=== PATIENT | female | born 2000 | race Caucasian/White ===

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

== ENCOUNTER → 2019-09-18 16:16 | Outpatient (CLI) | payer MEDICAID, SELFPAY ==
[2019-09-21 00:22] LABS: Neisseria gonorrhoeae, NAA Negative (Negative)
== END ==
PROVIDERS: Visit Provider Nurse Practitioner Obstetrics & Gynecology
DX: Z34.90 Encounter for supervision of normal pregnancy, unspecified, unspecified trimester (principal)
CPT/HCPCS: 87491; 87591

== ENCOUNTER → 2019-09-30 13:12 | Outpatient (CLI) | payer MEDICAID, SELFPAY ==
--- NOTE | 2019-09-30 13:13 | US_ITS ---
PROCEDURE: US OB TRANSVAGINAL CLINICAL INDICATION: for dates COMPARISON: TVP US TRANSVAGINAL PREG from 12/20/2016 FINDINGS: An intrauterine gestational sac is present with a pole with a crown-rump length of 2.34cm correlating to gestational age of 9weeks 1day. heart tones are present with an FHR of 178bpm. Yolk sac is noted. The uterus is retroverted. Along the anterior left lateral aspect of the gestational sac there is a fluid collection measuring 2.3 x 1.8 cm consistent with an area of subchorionic hemorrhage. Consider follow-up to confirm stability IMPRESSION: Live IUP at 9 weeks 1 day. heart tones are present. There is suspected area of subchorionic hemorrhage along the anterior and left lateral aspect of the gestational sac. Consider follow-up to confirm stability the Estimated due date by Ultrasound is 05/03/2020 Dictated by: Javon Roper MD 09/30/2019 15:37 Electronically signed by Javon Roper MD in [place] 09/30/2019 15:37
== END ==
PROVIDERS: PCP Nurse Practitioner Obstetrics & Gynecology; Visit Provider Nurse Practitioner Obstetrics & Gynecology
DX: Z34.90 Encounter for supervision of normal pregnancy, unspecified, unspecified trimester (principal)
CPT/HCPCS: 76802; 76817

== ENCOUNTER → 2019-12-13 12:40 | Outpatient (CLI) | payer MEDICAID, SELFPAY ==
--- NOTE | 2019-12-13 12:41 | US_ITS ---
PROCEDURE: US OB /MATERNAL DETAIL CLINICAL INDICATION: 20 weeks gestation COMPARISON: US OB TRANSVAGINAL from 09/30/2019 FINDINGS: There is a single live fetus which is in cephalic presentation. heart and body motion noted. The placenta is anterior. Average appearing amount of amniotic fluid. Cervix is closed and measures 4 cm transabdominal Complete survey performed and was unremarkable on the submitted images as in PACS. No discrete anomalies identified on survey imaging by technologist. Active fetus. Three-vessel cord with satisfactory umbilical cord insertion. 4- chamber heart noted. Survey of brain & ventricles Unremarkable. Face and neck survey unremarkable. Diaphragm and chest views unremarkable. Abdomen: Both kidneys noted and unremarkable. Stomach noted and satisfactory. Spine: Survey of the spine satisfactory with no anomalies identified nor imaged. Both arms and legs noted. Amniotic Fluid: Adequate. Maternal adnexa: No significant findings. Measurements: Average ultrasound age 19weeks 6days. Gestational Age 19weeks 5days Estimated due date by ultrasound age 1105/02/2020. Estimated weight 311g BPD = 19weeks 6days OFD = 20weeks 3days HC = 19weeks 3days AC = 19weeks 6days FL = 19weeks 6days Growth Percentile= 47Percent% Heart Rate = 149bpm Cerebellum = 20weeks 1day Humerus = 20weeks 1day HC/AC is 1.16 CI is 0.77 FL/BPD is 0.69 FL/AC is 0.22 IMPRESSION: Live IUP at 19 weeks 6 days as described above. All parameters correlate with no obvious anomalies. Please see above for detail Dictated by: Javon Roper MD 12/16/2019 10:54 Electronically signed by Javon Roper MD in [place] 12/16/2019 10:54
== END ==
PROVIDERS: PCP Nurse Practitioner Obstetrics & Gynecology; Visit Provider Nurse Practitioner Obstetrics & Gynecology
DX: Z34.90 Encounter for supervision of normal pregnancy, unspecified, unspecified trimester (principal); Z3A.20 20 weeks gestation of pregnancy
CPT/HCPCS: 76811

== ENCOUNTER → 2020-01-08 14:35 | Outpatient (CLI) | payer MEDICAID, SELFPAY ==
[2020-01-08 15:09] LABS: Basophils % 0.4 % (0.1-2.0); Eosinophils # 0.1 K/mm3 (0.0-0.4); Hemoglobin 11.5 g/dL (12.2-16.2); Lymphocytes # 1.9 K/mm3 (0.7-4.5); Lymphocytes % 21.2 % (10-50); Mean Corpuscular HGB Conc 34.9 g/dL (31.8-35.4); Mean Corpuscular Hemoglobin 33.2 pg (27.0-31.2); Mean Corpuscular Volume 95.1 fl (81-99); Mean Platelet Volume 8.6 fl (7.4-10.4); Monocytes # 0.2 K/mm3 (0.1-1.0); Monocytes % 2.7 % (1.7-9.3); Neutrophils # 6.8 K/mm3 (1.8-7.8); Neutrophils % 74.8 % (37.0-80.0); Platelet Count 179 K/mm3 (142-424); Red Blood Count 3.47 M/mm3 (4.20-5.40); Red Cell Distribution Width 13.3 % (11.5-17.5)
[2020-01-10 08:48] LABS: HIV Screen 4th Generation wRfx Non Reactive (Non Reactive)
[2020-01-10 18:00] LABS: Hepatitis B Surface Antigen Negative (Negative); Hepatitis C Antibody <0.1 s/co ratio (0.0-0.9); Rapid Plasma Reagin Ab Titer Non Reactive (NonRea<1:1); Rubella Antibodies, IgG <0.90 index (Immune >0.99)
== END ==
PROVIDERS: PCP Nurse Practitioner Obstetrics & Gynecology; Visit Provider Nurse Practitioner Obstetrics & Gynecology
DX: Z34.90 Encounter for supervision of normal pregnancy, unspecified, unspecified trimester (principal)
CPT/HCPCS: 36415; 85025; 86592; 86703; 86762; 86850; 87340; 87380; G0432

== ENCOUNTER → 2020-02-24 13:21 | Outpatient (CLI) | payer MEDICAID, SELFPAY ==
[2020-02-24 15:29] LABS: Glucose 1 Hour 134 mg/dL (74-100)
[2020-02-24 15:40] LABS: Glucose,Fasting 88 mg/dl (74-100)
== END ==
PROVIDERS: Visit Provider Nurse Practitioner Obstetrics & Gynecology
DX: Z34.90 Encounter for supervision of normal pregnancy, unspecified, unspecified trimester (principal)
CPT/HCPCS: 36415; 82951

== ENCOUNTER 2020-03-11 18:33 | Outpatient (CLI) | payer MEDICAID, SELFPAY ==
[2020-03-11 18:47] VITALS: BMI 22.2
[2020-03-11 18:51] LABS: Microscopic, Urine URINE MICROSCOPIC (MICROSCOPIC)
[2020-03-11 18:53] LABS: Appearance,Urine CLEAR (Clear); Bilirubin,Urine Negative (Negative); Blood, Urine Negative (Negative); Color,Urine YELLOW (Yellow); Glucose,Urine (UA) Negative (Negative); Ketones,Urine Negative (Negative); Leukocyte Esterase,Urine 1+ (Negative); Nitrate,Urine Negative (Negative); Protein,Urine Negative (Negative)
[2020-03-11 19:03] LABS: Bacteria,Urine 2+ /lpf
[2020-03-11 19:05] LABS: Amphetamine/Metha Screen,Urine Negative ng/ml (<1000); Benzodiazepines Screen,Urine Negative ng/ml (<200)
[2020-03-11 19:06] LABS: Barbiturates Screen,Urine Negative ng/ml (<200); Cannabinoid Screen,Urine Negative ng/ml (<50)
[2020-03-11 19:07] LABS: Cocaine Screen,Urine Negative ng/ml (<300)
[2020-03-11 19:08] LABS: Methadone Screen,Urine Negative ng/ml (<300); Opiate Screen,Urine Negative ng/ml (<300)
[2020-03-11 19:09] LABS: Phencyclidine Screen,Urine Negative ng/ml (<25)
[2020-03-11 19:15] VITALS: BP 116/72; PULSE 93; RESP 18; TEMP 37.6; O2SAT 98; BMI 22.2
== END 2020-03-11 20:51 | disposition home or self-care (01) ==
LOC: OBOUT 18:36 → OB 18:37
PROVIDERS: PCP Nurse Practitioner Obstetrics & Gynecology; Visit Provider Nurse Practitioner Obstetrics & Gynecology
DX: O47.03 False labor before 37 completed weeks of gestation, third trimester (principal); Z3A.32 32 weeks gestation of pregnancy
CPT/HCPCS: 59025; 80305; 81001; 87086; 96365; 96372; G0463

== ENCOUNTER 2020-03-12 18:06 | Outpatient (CLI) | payer MEDICAID, SELFPAY ==
[2020-03-12 18:22] VITALS: RESP 20; TEMP 36.7; O2SAT 100; BMI 24.4
== END 2020-03-12 18:42 | disposition home or self-care (01) ==
LOC: OBOUT 18:08 → OB 18:10
PROVIDERS: Visit Provider Nurse Practitioner Obstetrics & Gynecology
DX: O47.03 False labor before 37 completed weeks of gestation, third trimester (principal); Z3A.32 32 weeks gestation of pregnancy
CPT/HCPCS: 96372

== ENCOUNTER → 2020-04-10 16:35 | Outpatient (CLI) | payer MEDICAID, SELFPAY | PROVIDERS: Visit Provider Nurse Practitioner Obstetrics & Gynecology | DX: Z34.90 Encounter for supervision of normal pregnancy, unspecified, unspecified trimester (principal) | CPT/HCPCS: 86403 ==

== ENCOUNTER → 2020-04-14 10:28 | Outpatient (CLI) | payer MEDICAID, SELFPAY ==
--- NOTE | 2020-04-14 10:29 | US_ITS ---
PROCEDURE: US OB FOLLOW UP CLINICAL INDICATION: sga Small for gestational age COMPARISON: US US OB /MATERNAL DETAIL from 12/13/2019 FINDINGS: There is a single live fetus present in cephalic presentation. heart and body motion noted. The placenta is anterior and fundal in implantation. The cervix is closed and measures 3 cm. Average ultrasound age is 37 weeks 0 days. Estimated weight a 3059 g which is 47 percentile. BPD 37 weeks 1 day, OFD 37 weeks 5 days, HC 36 weeks 3 days, AC 37 weeks 0 days, FL 37 weeks 0 days. Heart rate is 158 beats per minute. Estimated due date by ultrasound is 05/05/2020. Biophysical profile is 8 of 8 and amniotic fluid index is 10 cm. IMPRESSION: Live IUP at 37 weeks 0 days as described above. No evidence of intrauterine growth restriction. Please see above for detail. Biophysical profile 8 of 8. Amniotic fluid index 10 cm. Dictated by: Javon Roper MD 04/15/2020 11:28 Javon Roper MD in [place] 04/15/2020 11:28
== END ==
PROVIDERS: Visit Provider Nurse Practitioner Obstetrics & Gynecology
DX: O36.5990 Maternal care for other known or suspected poor fetal growth, unspecified trimester, not applicable or unspecified (principal)
CPT/HCPCS: 76816; 76819

== ENCOUNTER 2020-04-17 02:54 | Inpatient (IN) | payer MEDICAID, SELFPAY ==
[2020-04-16 23:21] VITALS: BMI 25.3
[2020-04-16 23:26] LABS: Microscopic, Urine URINE MICROSCOPIC (MICROSCOPIC)
[2020-04-16 23:28] VITALS: BP 116/77; PULSE 113; RESP 19; TEMP 36.8; O2SAT 98; BMI 25.7
[2020-04-16 23:28] LABS: Appearance,Urine CLEAR (Clear); Bilirubin,Urine Negative (Negative); Blood, Urine Negative (Negative); Color,Urine YELLOW (Yellow); Glucose,Urine (UA) Negative (Negative); Ketones,Urine Negative (Negative); Leukocyte Esterase,Urine Negative (Negative); Nitrate,Urine Negative (Negative); Protein,Urine Negative (Negative)
[2020-04-16 23:41] LABS: Barbiturates Screen,Urine Negative ng/ml (<200); Benzodiazepines Screen,Urine Negative ng/ml (<200)
[2020-04-16 23:42] LABS: Amphetamine/Metha Screen,Urine Negative ng/ml (<1000); Cannabinoid Screen,Urine Negative ng/ml (<50)
[2020-04-16 23:43] LABS: Cocaine Screen,Urine Negative ng/ml (<300)
[2020-04-16 23:44] LABS: Methadone Screen,Urine Negative ng/ml (<300); Opiate Screen,Urine Negative ng/ml (<300)
[2020-04-16 23:45] LABS: Phencyclidine Screen,Urine Negative ng/ml (<25)
[2020-04-16 23:48] LABS: Bacteria,Urine Trace /lpf; WBC,Urine Occasional #/hpf (0-3)
[2020-04-16 23:59] LABS: Fetal Membrane Rupture (Rapid) Negative (Negative)
[2020-04-17 03:23] LABS: Basophils % 0.4 % (0.1-2.0); Eosinophils # 0.1 K/mm3 (0.0-0.4); Eosinophils % 1.1 % (0.1-12.0); Hematocrit 29.9 % (37.0-47.0); Lymphocytes # 2.7 K/mm3 (0.7-4.5); Lymphocytes % 28.4 % (10-50); Mean Corpuscular HGB Conc 33.3 g/dL (31.8-35.4); Mean Corpuscular Hemoglobin 30.6 pg (27.0-31.2); Mean Platelet Volume 9.7 fl (7.4-10.4); Monocytes # 0.4 K/mm3 (0.1-1.0); Monocytes % 4.6 % (1.7-9.3); Neutrophils # 6.2 K/mm3 (1.8-7.8); Neutrophils % 65.6 % (37.0-80.0); Platelet Count 160 K/mm3 (142-424); Red Blood Count 3.25 M/mm3 (4.20-5.40); Red Cell Distribution Width 13.8 % (11.5-17.5); White Blood Count 9.4 K/mm3 (4.8-10.8)
[2020-04-17 04:53] LABS: Coronavirus 19 IgG Antibody Negative (Negative); Coronavirus 19 IgM Antibody Negative (Negative)
--- NOTE | 2020-04-17 08:40 | HMH.OBAPHP ---
OB - H&P: HPI Antepartum - History of Present Illness Chief complaint: Contractions History of present illness: She is a 19-year-old 2 para 1 at 37 and 5 weeks gestational age. She was admitted overnight with contractions. She subsequently changed her cervix from 3 to 4 cm. She is now 4 to 5 cm. She is having just occasional contractions but she complains of severe back pain. As result of this we will admit her for labor and delivery. [place]. - History of Present Criteria for establishing EDC:: LMP confirmed by 1st trimester US care: good care Ultrasounds: normal 1st trimester US, normal mid trimester US Obstetrical complications: none Medical complications: none [facility] History I have reviewed the patient's past medical history: Yes Medical History: Denies:: Anxiety, Depression *Have you ever received a pneumonia vaccine?: No *Have you received a flu vaccine this season?: No Other Surgeries: Yes: No Previous Surgery. No: Amputation: No Fractures: No - *Social History Smoking Status: Never smoker Alcohol Intake: never Alcohol Intake Frequency:: other Substance Use Type: denies use *Occupational Status:: unemployed *Travel in the last 8 weeks: None - Psychiatric History Pschychiatric History:: Denies:: Anxiety, Depression Family Hx:: No significant family history Para: 1 Review of Systems - Review of Systems Review of systems:: pertinent systems reviewed and negative unless documented below Meds Home Medications Medication Instructions Recorded Confirmed Type prenat.vits,courtney,qam-kkfn-bqfhd 1 tab PO DAILY 06/07/17 04/17/20 History promethazine 25 mg tablet 25 mg PO Q4-6H PRN #15 tab 09/20/19 04/17/20 Rx Ferrous Sulfate 325 mg PO DAILY 04/17/20 04/17/20 History Allergies Allergy/AdvReac Type Severity Reaction Status Date / Time No Known Allergies Allergy Verified 04/17/20 03:36 OB - H&P: Exam - Physical Exam Vital signs: Temp Pulse Resp BP Pulse Ox 98.3 F 113 H 19 116/77 98 04/16/20 23:28 04/16/20 23:28 04/16/20 23:28 04/16/20 23:28 04/16/20 23:28 - Constitutional no acute distress - Routine HEENT Exam Head: Present: normocephalic Eye: Present: EOMI, PERRL ENT: Present: mucous membranes moist - Routine Neck Exam Present: supple, full ROM - Routine Respiratory Exam Absent: accessory muscle use (good air entry bilaterally), respiratory distress, wheezes, crackles - Routine Cardiovascular Exam Present: RRR. Absent: murmur - Routine Abdominal Exam Present: soft, normoactive bowel sounds. Absent: tenderness, distended, guarding - Routine Rectal Exam Patient deferred: visual exam, digital exam - Routine Exam Patient deferred: external exam, groin exam, perineal exam - Routine Extremities Exam Present: full ROM. Absent: cyanosis, edema - Routine Skin Exam Present: intact. Absent: cyanosis - Routine Neurological Exam Present: alert, oriented X3 - Routine Psychiatric Exam Present: normal affect OB - Results - Labs Labs: Short CBC 04/17/20 Range/Units 03:05 WBC 9.4 (4.8-10.8) K/mm3 Hgb 10.0 L (12.2-16.2) g/dL Hct 29.9 L (37.0-47.0) % Plt Count 160 (142-424) K/mm3 Urine 04/16/20 Range/Units 23:10 Urine Color Yellow (Yellow) Urine Appearance Clear (Clear) Urine pH 7.0 (5.0-8.5) Ur Specific [place] 1.020 (1.005-1.030) Urine Protein Negative (Negative) Urine Glucose (UA) Negative (Negative) OB - A/P Antepartum (1) Normal delivery at term Status: Acute - Additional Plan Planning to breastfeed?: No Plan: expectant management Additional Information:: She is now 37 weeks and 5 days. She is having irregular contractions. She has changed her cervix overnight. She lives about 20 miles at a time. We will go ahead and deliver her.
--- NOTE | 2020-04-17 08:42 | HMH.LABNOT ---
Labor Note - Subjective: Date: 04/17/20 Time: 08:42 irregular contractions - Objective: NST:: Reactive Contractions:: every 4-5 minutes Cervical Dilation:: 4-5 Effacement:: 75% Station: -2 Membranes: intact - Fetus: Monitoring?: Yes monitoring type:: External - Assessment: Labor progressing?: Yes Cephalopelvic disproportion?: No Patient Problems: All Active Problems (This Medical Record has been edited. Action required.) Normal delivery at term (Acute) (Acute) - Plan: Anesthesia for epidural?: No Continue to labor down?: Yes Plan for ?: No Continue to monitor?: Yes Start pushing?: No
--- NOTE | 2020-04-17 09:25 | HMH.LABNOT ---
Labor Note - Subjective: Date: 04/17/20 Time: 09:25 irregular contractions - Objective: NST:: Reactive Contractions:: every 4-5 minutes Cervical Dilation:: 4-5 Effacement:: 80% Station: -1 Membranes: artificially ruptured - Fetus: Monitoring?: Yes monitoring type:: Internal and External Comment:: I inserted an IUPC - Assessment: Labor progressing?: Yes Cephalopelvic disproportion?: No Patient Problems: All Active Problems (This Medical Record has been edited. Action required.) Normal delivery at term (Acute) (Acute) - Plan: Anesthesia for epidural?: Yes Continue to labor down?: Yes Plan for ?: No Continue to monitor?: Yes Start pushing?: No
--- NOTE | 2020-04-17 11:10 | P.PN_ITS ---
[facility] Anesthesia Checklist - Patient Identification Patient Identification: Arm Band, Verbal (Name & ) - Structural Data Admitted From: Home Planned Operative Procedure/s: Labor epidural Consent for Planned Operative Procedure(s) Verified: Yes Verified Documents: Surgical Consent, History and Physical - Chart Verification Results Verified: CBC - Additional verifications Patient : Yes Anesthesia Reactions: No - Airway Assessment C-Spine Mobility Assessed: Yes TMJ Mobility Assessed: Yes Dentition: Good Dentition - Neurological Assessment Level of Consciousness: Awake, Alert, Appropriate, Follows Commands Hx Seizures: No Numbness or tingling in extremities: No - Anesthesia Plan Anesthesia Risk discussed: Yes Anesthesia Plan: Verified ASA Class: II Anesthesia Type: Epidural [facility] History I have reviewed the patient's past medical history: Yes Medical History: Reports:: Gastroesophageal Reflux Disease(GERD) Denies:: Anxiety, Depression *Have you ever received a pneumonia vaccine?: No *Have you received a flu vaccine this season?: No Anesthesia experience/problems:: None Other Surgeries: Yes: No Previous Surgery. No: Amputation: No Fractures: No - *Social History Smoking Status: Never smoker Alcohol Intake: never Alcohol Intake Frequency:: other Substance Use Type: denies use *Occupational Status:: unemployed *Travel in the last 8 weeks: None - Psychiatric History Pschychiatric History:: Denies:: Anxiety, Depression Family Hx:: No significant family history Para: 1
--- NOTE | 2020-04-17 12:14 | HMH.LABNOT ---
Labor Note - Subjective: Date: 04/17/20 Time: 12:14 regular contraction - Objective: NST:: Reactive Contractions:: every 2-3 minutes Cervical Dilation:: 6-7 Effacement:: 90% Station: 0 Membranes: artificially ruptured - Fetus: Monitoring?: Yes monitoring type:: Internal and External - Assessment: Labor progressing?: Yes Cephalopelvic disproportion?: No Patient Problems: All Active Problems (This Medical Record has been edited. Action required.) Normal delivery at term (Acute) (Acute) - Plan: Anesthesia for epidural?: Yes Continue to labor down?: Yes Plan for ?: No Continue to monitor?: Yes Start pushing?: No
--- NOTE | 2020-04-17 13:47 | HMH.DN ---
- Delivery Note Delivery Date:: 04/17/20 Delivery Time:: 13:40 Anesthesia Type: Epidural Was labor medically induced?: No Induction method: none Gestational age (weeks): 37 Infant delivered prior to 39 weeks?: Yes Justification for early elective delivery:: Active Labor Infant Gender: Female at 1 minute: 9 at 5 minutes: 9 Delivery Procedure:: She is a 19-year-old 2 para 1 at 37 and 5 weeks gestational age. She came in active labor and change her cervix from 3-4 to almost 5 cm overnight. As result of that we elected to augment her labor. She was started on IV oxytocin had her membranes ruptured. Under labor epidural she progressed to full dilation and delivered spontaneously a liveborn female child at 1:40 PM in the afternoon of April 17, 2020. On deliver the head the anterior shoulder then easily delivered followed by the rest the 's body atraumatically. The oropharynx and nasopharynx were bulb suction. The baby was stimulated and cried spontaneously. She was quite vigorous. We allowed the cord to continue to pulsate for approximately 1 minute. The cord was then doubly clamped and cut and the infant was placed on the mother's abdomen for further care. We then obtained cord blood as well as cord pH. She received IV oxytocin and using gentle traction on the cord and countertraction on the fundus I was able to easily deliver the placenta intact. He had a normal three-vessel cord. There were no perineal or vaginal lacerations. She has a Rh+ blood, she is rubella immune and was group B streptococcus negative. Her estimated blood loss was less than 150 cc. Placental Delivery Description: Spontaneous
[2020-04-17 13:50] LABS: Cord Blood PH 7.45 (7.35-7.45)
[2020-04-17 20:00] VITALS: BP 110/59; PULSE 78; RESP 20; TEMP 36.8; O2SAT 99
[2020-04-18] VITALS: BP 101/50; PULSE 64; RESP 16; TEMP 36.7; O2SAT 98
[2020-04-18 03:52] VITALS: BP 90/53; PULSE 57; RESP 16; TEMP 36.5; O2SAT 99
[2020-04-18 07:18] LABS: Hematocrit 28.6 % (37.0-47.0); Hemoglobin 9.4 g/dL (12.2-16.2)
[2020-04-18 08:25] VITALS: BP 107/65; PULSE 62; RESP 18; TEMP 36.7; O2SAT 99
--- NOTE | 2020-04-18 11:22 | HMH.ACPN2 ---
Internal Medicine - PN: Subj *Date: 04/18/20 *Time: 11:22 Interval history: She continues to do very well this morning. She is eating and drinking and ambulating. She is 1 day post vaginal delivery. She denies any pain. She denies any excess vaginal bleeding. She is bottlefeeding and breast-feeding. Exam Vital signs and Labs for Last 24 Hours: Temp Pulse Resp BP Pulse Ox 98.1 F 62 18 107/65 L 99 04/18/20 08:25 04/18/20 08:25 04/18/20 08:25 04/18/20 08:25 04/18/20 08:25 Laboratory Results - last 24 hr 04/17/20 13:35: Cord ABG pH 7.45 04/18/20 06:22: Hgb 9.4 L, Hct 28.6 L I & O for Last 24 hours: Intake & Output 04/15/20 04/16/20 04/17/20 04/18/20 11:59 11:59 11:59 11:59 Weight 119 lb - Constitutional no acute distress - *Routine HEENT Exam Head: Present: normocephalic Eye: Present: EOMI, PERRL ENT: Present: mucous membranes moist Assessment and Plan (1) Normal delivery at term Status: Acute Category: Medical Code(s): O80 - Encounter for full-term uncomplicated delivery - Assessment and plan all Dx Assessment and Plan for all problems:: She is doing very well. We will plan to send her home tomorrow.
[2020-04-18 11:34] VITALS: BP 107/73; PULSE 66; RESP 16; TEMP 36.8; O2SAT 99
[2020-04-18 16:15] VITALS: BP 102/72; PULSE 63; RESP 18; TEMP 36.7; O2SAT 99
[2020-04-18 20:10] VITALS: BP 113/55; PULSE 65; RESP 16; TEMP 36.8; O2SAT 100
[2020-04-19 03:50] VITALS: BP 98/58; PULSE 56; RESP 16; TEMP 36.6; O2SAT 98
[2020-04-19 08:30] VITALS: BP 118/64; PULSE 60; RESP 18; TEMP 36.9; O2SAT 100
--- NOTE | 2020-04-19 08:48 | HMH.OBDCSM ---
General - General Admission date:: 04/17/20 Discharge date: 04/19/20 HPI - History of Present Illness History of present illness: She is a 19-year-old 2 para 1 who was 37 and 3 weeks gestational age. She came in in active labor. Hospital Course Hospital Course: She had change her cervix from 3 to 5 cm and as result of that we elected to deliver her. She had her membranes ruptured under labor epidural progressed to full dilation. She delivered a liveborn female child at 1:40 PM in the afternoon of April 17, 2020. The baby weighed 6 pounds 3 ounces and was 18 inches long. She had Apgars of 9 at 1 minute and 9 at 5 minutes. She has done well and has remained afebrile throughout her hospitalization. She is eating and drinking and ambulating. She is breast-feeding and bottlefeeding. She has a Rh+ blood, she is rubella nonimmune and was group B streptococcus negative. Her accounting consultant is Dr. Noel. She is discharged home to follow-up with me in approximately 2 weeks time. She has had Depo-Provera prior to discharge. She was given the usual instructions with respect to limiting her activity, driving and sexual activity. Her condition on discharge is stable and improved. Rhogam Administration: Not Indicated Objective Vital signs: Temp Pulse Resp BP Pulse Ox 97.9 F 56 L 16 98/58 L 98 04/19/20 03:50 04/19/20 03:50 04/19/20 03:50 04/19/20 03:50 04/19/20 03:50 DS: Diagnosis - Discharge Diagnosis (1) Normal delivery at term Status: Acute Discharge Plan - Patient Discharge Instructions - Follow up Plan Home Medications: Home Medications Medication Instructions Recorded Confirmed Type prenat.vits,courtney,[id number] 1 tab PO DAILY 06/07/17 04/17/20 History promethazine 25 mg tablet 25 mg PO Q4-6H PRN #15 tab 09/20/19 04/17/20 Rx Ferrous Sulfate 325 mg PO DAILY 04/17/20 04/17/20 History Prescriptions/Medication Reconciliation: No Action promethazine 25 mg tablet 25 mg PO Q4-6H PRN #15 tab PRN Reason: nausea and vomiting prenat.vits,courtney,[id number] 1 tab PO DAILY Ferrous Sulfate 325 mg PO DAILY - Problem Reconciliation Problems Reviewed?: Yes
== END 2020-04-19 09:50 | disposition home or self-care (01) | DRG 807 ==
LOC: OBOUT 02:55 → OB 11:24
PROVIDERS: Admitting Provider Obstetrics & Gynecology; Visit Provider Nurse Practitioner Obstetrics & Gynecology
DX: O80 Encounter for full-term uncomplicated delivery (principal); Z37.0 Single live birth; Z3A.37 37 weeks gestation of pregnancy
CPT/HCPCS: 59409; 36415; 59025; 76816; 76819; 80305; 81001; 82800; 84112; 85014; 85018; 85025; 86328; 86850; 96360; C1758; J0595; J1050

== ENCOUNTER 2024-06-29 14:35 | Emergency (ER) | payer MEDICAID, SELFPAY ==
[2024-06-29 14:45] VITALS: BP 114/84; PULSE 100; RESP 16; TEMP 36.7; O2SAT 98; BMI 19.6
[2024-06-29 14:56] LABS: Apearance,Urine Cloudy (Clear); Bilirubin,Urine Negative (Negative); Blood, Urine 3+ (Negative); Color,Urine Dark Yellow (Yellow); Glucose,Urine (UA) Negative (Negative); Ketones,Urine 15 (Negative); PH,Urine 5.5 (5.0-8.5); Protein,Urine 2+ (Negative); UTC Leukocyte Esterase,Urine 2+ (Negative); UTC Nitrate,Urine Positive (Negative); Urobilinogen,Urine 0.2 EU/dl (0.2)
--- NOTE | 2024-06-29 15:49 | EXP.UTC ---
Discharge Plan Disposition Patient Disposition: Home, Self-Care Condition: Good Prescriptions Prescriptions: New nitrofurantoin monohyd/m-cryst [Macrobid] 100 mg capsule 100 mg PO Q12H 7 Days Qty: 14 0RF Rx Instructions: must administer with a meal/food phenazopyridine [Pyridium] 100 mg tablet 100 mg PO TID PRN (Reason: pain) Qty: 6 0RF Referrals Follow up/Referrals: Adrian Deutsch [Primary Care Provider] - See instructions Activity Restrictions/Add. Instructions Additional Instructions/Restrictions: Take medication as prescribed. Increase fluids. Do not hold urine. Void immediately after intercourse. Wipe from front to back. If symptoms persist or worsen, return to clinic/PCP. Clinical Impressions Clinical Impression: UTI (urinary tract infection) Qualifiers: Urinary tract infection type: acute cystitis Hematuria presence: with hematuria Qualified Code(s): N30.01 - Acute cystitis with hematuria Instructions Patient Instructions: DI for Urinary Tract Infection (UTI) Print Language Print Language: Georgian Discharge ED Provider: Oumou Montgomery [facility] General Stated complaint: lower back pain, no accident Mode of Arrival: Ambulatory Source of Information: Patient Limitations: No Limitations Time Seen by Provider: 06/29/24 15:49 Description of Symptoms (Recalled from Triage Doc. by RN): PATIENT C/O RIGHT SIDE AND LOWER BACK PAIN THAT STARTED 3 DAYS AGO HEENT Symptoms (Recalled from RN notes): No Resp Symptoms (Recalled from RN notes): No Skin Symptoms (Recalled from RN notes): No MS Symptoms (Recalled from RN notes): No Functional Status (Recalled from RN notes): WNL Related Data Previous Rx's ?Medication ?Instructions ?Recorded nitrofurantoin 100 mg PO Q12H 7 days #14 caps 06/29/24 monohydrate/macrocrystals 100 mg capsule (Macrobid) phenazopyridine 100 mg tablet 100 mg PO TID PRN pain 6 doses #6 06/29/24 (Pyridium) tabs Allergies Allergy/AdvReac Type Severity Reaction Status Date / Time promethazine (From Phenergan) Allergy Unknown Verified 06/29/24 14:55 allergy reaction Worker's Comp Is this a Worker's Comp case?: No [facility] Disclaimer: The information contained in this section may have been updated after the patient was seen, as this information can be updated by other users. Social History (System 08/04/17 @ 11:43 by Inocencia Marquez) Smoking Status: Never smoker alcohol intake: never substance use type: denies use current occupational status: unemployed Travel in the last 8 weeks: None Have you lived/traveled outside US in past 30 days?: No Contact w/someone who lives/traveled outside US past 30 days?: No Exposure to someone with infectious disease in past 14 days?: No Do you have a fever (greater than 100.4 F or 38 C)?: No Have you tested positive for COVID-19: No Exposed to someone with COVID-19 in past 14 days?: No Do you have a sore throat?: No Do you have a cough?: No Do you have any weakness?: No Do you have any diarrhea?: No Are you experiencing any unusual bleeding?: No Do you have any muscle aches/pain?: No Do you have any abdominal pain?: No Are you experiencing loss of taste or smell?: No ROS Obtained: Yes All systems reviewed & no additional complaints except as documented Constitutional Constitutional: Reports system reviewed and no additional complaints, except as documented Eyes Eyes: Reports system reviewed and no additional complaints, except as documented ENT Ears, Nose, Mouth, and Throat: Reports system reviewed and no additional complaints, except as documented Cardiovascular Cardiovascular: Reports system reviewed and no additional complaints, except as documented Respiratory Respiratory: Reports system reviewed and no additional complaints, except as documented Gastrointestinal Gastrointestingal: Reports system reviewed and no additional complaints, except as documented Genitourinary Female Genitourinary: Reports system reviewed and no additional complaints, except as documented, Reports as per HPI, Reports flank pain and Reports urinary frequency Musculoskeletal Musculoskeletal: Reports system reviewed and no additional complaints, except as documented Integumentary/Breasts Skin/Breast: Reports system reviewed and no additional complaints, except as documented Neurologic Neurologic: Reports system reviewed and no additional complaints, except as documented Endocrine Endocrine: Reports system reviewed and no additional complaints, except as documented Hematologic/Lymphatic Henatologic/Lymphatic: Reports system reviewed and no additional complaints, except as documented Allergic/Immunologic Allergic/Immunologic: Reports system reviewed and no additional complaints, except as documented Physical Exam General General appearance: alert and in no apparent distress Head Head exam: atraumatic and normocephalic Eye Eye exam: Present normal appearance ENT ENT exam: Present normal exam, normal oropharynx and mucous membranes moist Neck Neck exam: Present normal inspection Chest Chest inspection: Present normal inspection and symmetric chest wall rise Respiratory Respiratory exam: Present normal lung sounds bilaterally Cardiovascular Cardiovascular exam: Present regular rate and normal rhythm Abdominal Exam Abdominal exam: Present soft and normal bowel sounds; Absent tenderness Extremities Exam Extremities exam: Present normal inspection Back Exam Back exam: Present normal inspection and CVA tenderness (R); Absent CVA tenderness (L) Neurological Exam Neurological exam: Present alert and oriented X3 Psychiatric Psychiatric exam: Present normal affect and normal mood Skin Skin exam: Present warm, dry and intact Lymphatic Lymphatic Findings: no adenopathy Medical Decision Making Medical Records Screening: Per USPSTF and CDC recommendations, given the prevalence of disease in our region, it is our hospital?s policy to screen for HIV and viral Hepatitis for all patients aged 18 and over and those with ongoing risk factors. [place] Inquiry Pt receiving controlled substance: No [place] was queried for this patient: No Vital Signs: 06/29/24 14:45 Temperature 98.1 F Temperature Source Oral Pulse Rate [Left Brachial] 100 H Respiratory Rate 16 Blood Pressure [Left Arm] 114/84 Blood Pressure Mean [Left Arm] 94 Blood Pressure Source [Left Arm] Automatic Cuff Blood Pressure Position [Left Arm] Sitting 02 Sat by Pulse Oximetry 98 Oxygen Delivery Method Room Air Lab Data Lab results reviewed: Yes I reviewed the patient's lab results. Lab Results 06/29/24 14:48: Urine Color Dark yellow, Urine Appearance Cloudy, Urine pH 5.5, Ur Specific [place] 1.020, Urine Protein 2+, Urine Glucose (UA) Negative, Urine Ketones 15, Urine Blood 3+, Urine Nitrate Positive A, Urine Bilirubin Negative, Urine Urobilinogen 0.2, Ur Leukocyte Esterase 2+ A Orders (Tests/Meds): ORDERS Category Date Time Status Urine Culture Stat Micro 06/29/24 14:55 Ordered
[2024-06-29 15:57] VITALS: BP 114/84; PULSE 100; RESP 16; TEMP 36.7; O2SAT 98
--- NOTE | 2024-07-04 09:21 | PC.NURSE ---
REVIEWED URINE CULTURE, PATIENT CURRENTLY ON MACROBID, NO CHANGES NEEDED AT THIS TIME
== END 2024-06-29 15:58 | disposition home or self-care (01) ==
PROVIDERS: Emergency Provider Nurse Practitioner Family; PCP Pediatrics
DX: N30.01 Acute cystitis with hematuria (principal); M54.50 Low back pain, unspecified; R10.9 Unspecified abdominal pain; R35.0 Frequency of micturition
CPT/HCPCS: 81003; 87086; 87088; 87186; 99212; G0381

== ENCOUNTER 2024-07-05 12:29 | Emergency (ER) | payer MEDICAID, SELFPAY ==
--- NOTE | 2024-07-05 13:08 | ED_ITS ---
Discharge Plan Disposition Patient Disposition: Home, Self-Care Condition: Good Prescriptions Prescriptions: New phenazopyridine 200 mg Tablet 200 mg PO TID 2 Days Qty: 6 0RF ciprofloxacin HCl [Cipro] 500 mg tablet 500 mg PO BID 7 Days Qty: 14 0RF ondansetron 4 mg Tablet,Disintegrating 4 mg PO Q8H PRN (Reason: Nausea) Qty: 12 0RF cefdinir 300 mg capsule 300 mg PO BID 7 Days Qty: 14 0RF Referrals Follow up/Referrals: Adrian Deutsch [Primary Care Provider] - See instructions Activity Restrictions/Add. Instructions Additional Instructions/Restrictions: Drink plenty of fluids. Take tylenol or ibuprofen for pain or fever. Take the medications as directed. Follow up with your regular doctor. GO TO THE ER FOR ANY WORSENING SYMPTOMS The pyridium will make your urine turn orange, this is an expected side effect. It will stain your clothes if it comes into contact with them. Make sure you eat foot with the pyridium. People usually take it will meals for the 2 days it's prescribed. I put zofran (ondansetron) on the prescriptions in case it upsets your stomach. We will culture the urine. That will tell what bacteria is causing your infection and which antibiotics will treat it best.This test takes 3 days to complete. Clinical Impressions Clinical Impression: UTI (urinary tract infection) Qualifiers: Urinary tract infection type: acute cystitis Hematuria presence: with hematuria Qualified Code(s): N30.01 - Acute cystitis with hematuria Instructions Patient Instructions: Urine Culture, DI for Urinary Tract Infection (UTI), Ondansetron, Phenazopyridine, Fluconazole Print Language Print Language: Egyptian Discharge ED Provider: Karri Gleason [facility] General Stated complaint: UTI Possible e coli Time Seen by Provider: 07/05/24 13:08 History of Present Illness Provider Complaint: She was diagnosed with a UTI around 10 days ago. She states she took the macrobid as prescribed. She states that her symptoms did get a lot better while she was on the antibiotics, but as soon as she finished they returned. Related Data Previous Rx's ?Medication ?Instructions ?Recorded cefdinir 300 mg capsule 300 mg PO BID 7 days #14 caps 07/05/24 ciprofloxacin HCl 500 mg tablet 500 mg PO BID 7 days #14 tabs 07/05/24 (Cipro) ondansetron 4 mg disintegrating 4 mg PO Q8H PRN Nausea #12 tabs 07/05/24 tablet phenazopyridine 200 mg tablet 200 mg PO TID 2 days #6 tabs 07/05/24 Allergies Allergy/AdvReac Type Severity Reaction Status Date / Time promethazine (From Phenergan) Allergy Unknown Verified 06/29/24 14:55 [facility] Dis[facility]: The information contained in this section may have been updated after the patient was seen, as this information can be updated by other users. Social History (System 08/04/17 @ 11:43 by Inocencia Marquez) Smoking Status: Never smoker alcohol intake: never substance use type: denies use current occupational status: unemployed Travel in the last 8 weeks: None Have you lived/traveled outside US in past 30 days?: No Contact w/someone who lives/traveled outside US past 30 days?: No Exposure to someone with infectious disease in past 14 days?: No Do you have a fever (greater than 100.4 F or 38 C)?: No Have you tested positive for COVID-19: No Exposed to someone with COVID-19 in past 14 days?: No Do you have a sore throat?: No Do you have a cough?: No Do you have any weakness?: No Do you have any diarrhea?: No Are you experiencing any unusual bleeding?: No Do you have any muscle aches/pain?: No Do you have any abdominal pain?: No Are you experiencing loss of taste or smell?: No ROS Obtained: Yes All systems reviewed & no additional complaints except as documented Constitutional Constitutional: Reports system reviewed and no additional complaints, except as documented, Denies chills and Denies fever(s) Eyes Eyes: Denies eye discharge ENT Ears, Nose, Mouth, and Throat: Denies dysphagia, Denies sore throat and Denies throat swelling Cardiovascular Cardiovascular: Denies chest pain and Denies dyspnea Respiratory Respiratory: Denies chest congestion, Denies cough and Denies dyspnea Gastrointestinal Gastrointestingal: Denies abdominal pain, constipation, diarrhea, dysphagia, nausea or vomiting Genitourinary Female Genitourinary: Reports as per HPI, Reports dysuria, Reports urinary frequency, Denies urinary incontinence, Reports urinary hesitancy and Reports urinary urgency Musculoskeletal Musculoskeletal: Denies arthralgias and Reports back pain Integumentary/Breasts Skin/Breast: Denies rash Neurologic Neurologic: Denies paresthesias Allergic/Immunologic Allergic/Immunologic: Denies throat swelling Physical Exam General General appearance: alert and in no apparent distress Head Head exam: atraumatic and normocephalic Eye Eye exam: Present normal appearance, PERRL and EOMI ENT ENT exam: Present normal exam, mucous membranes moist, TM's normal bilaterally and normal external ear exam Neck Neck exam: Present normal inspection, full ROM and trachea midline; Absent tend erness, meningismus or lymphadenopathy Chest Chest inspection: Present normal inspection and symmetric chest wall rise; Absent tenderness Respiratory Respiratory exam: Present normal lung sounds bilaterally; Absent respiratory distress, wheezes or stridor Cardiovascular Cardiovascular exam: Present regular rate, normal rhythm and normal heart sounds Abdominal Exam Abdominal exam: Present soft and normal bowel sounds; Absent distention, tenderness, guarding, rebound, rigidity, incision, psoas sign, obturator sign, heel tap sign, Garnica's sign, Rovsing's sign or tenderness at McBurney's Point Extremities Exam Extremities exam: Present normal inspection, full ROM and normal capillary refill; Absent tenderness, edema, joint swelling, calf tenderness or cyanosis Back Exam Back exam: Present normal inspection and full ROM; Absent tenderness, CVA tenderness (R) or CVA tenderness (L) Neurological Exam Neurological exam: Present alert, oriented X3 and normal gait Psychiatric Psychiatric exam: Present normal affect and normal mood Skin Skin exam: Present warm, dry, intact and normal color Lymphatic Lymphatic Findings: no adenopathy Medical Decision Making Medical Records Medical records reviewed: No I reviewed the patient's medical records. Screening: Per USPSTF and CDC recommendations, given the prevalence of disease in our region, it is our hospital?s policy to screen for HIV and viral Hepatitis for all patients aged 18 and over and those with ongoing risk factors. [place] Inquiry Pt receiving controlled substance: No Lab Data Lab results reviewed: Yes I reviewed the patient's lab results.
[2024-07-05 13:10] VITALS: BP 108/57; PULSE 67; RESP 18; TEMP 36.8; O2SAT 99; BMI 19.9
[2024-07-05 13:18] LABS: Apearance,Urine Clear (Clear); Color,Urine Yellow (Yellow); PH,Urine 5.5 (5.0-8.5); Specific Gravity, Urine 1.025 (1.005-1.030)
[2024-07-05 13:19] LABS: Bilirubin,Urine Negative (Negative); Blood, Urine Negative (Negative); Glucose,Urine (UA) Negative (Negative); Ketones,Urine Negative (Negative); Protein,Urine Negative (Negative); UTC Leukocyte Esterase,Urine Negative (Negative); UTC Nitrate,Urine Positive (Negative); Urobilinogen,Urine 0.2 EU/dl (0.2)
[2024-07-05 13:35] VITALS: BP 108/57; PULSE 67; RESP 18; TEMP 36.8; O2SAT 99
== END 2024-07-05 13:38 | disposition home or self-care (01) ==
PROVIDERS: Emergency Provider Nurse Practitioner Family; PCP Pediatrics
DX: N30.01 Acute cystitis with hematuria (principal)
CPT/HCPCS: 81003; 87086; 99213; G0381